=== PATIENT | male | born 1975 ===

== ENCOUNTER 2017-08-11 10:40 | Emergency (ER) | payer OTHER, MEDICAID ==
[2017-08-11 10:56] VITALS: RESP 18; TEMP 98.1
--- NOTE | 2017-08-11 13:10 | RAD ---
Right tibia and fibula four views History: Fall. Comparison: None available. Findings: No evidence of acute displaced fracture or dislocation. Prominent traversing vessel through the medial cortex of the mid fibula. Impression: Negative acute. If pain persists, consider MRI.
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
[2017-08-11 13:40] VITALS: PULSE 65
[2017-08-11 13:47] VITALS: O2SAT 99
[2017-08-11 13:59] VITALS: BP 179/100
--- NOTE | 2017-08-11 14:09 | RAD ---
Pelvis and right hip two views History: Fall. Comparison: None available. Findings: Right hip: No evidence for acute displaced fracture or dislocation. Nonvisualization of the right lesser trochanter in relationship to the left proximal femur with cortical productive change along the medial cortex of the left proximal femur. This is of uncertain clinical etiology. Correlation with MRI may be helpful if clinically indicated. Clinical correlation. Remainder of the visualized bony pelvis appears grossly preserved. Impression: Nonvisualization of the right lesser trochanter in relationship to the left proximal femur with cortical productive change along the medial cortex of the left proximal femur. This is of uncertain clinical etiology. Correlation with MRI may be helpful if clinically indicated. Clinical correlation. If pain persists, consider MRI.
== END 2017-08-11 14:00 | disposition home or self-care (01) ==
LOC: C.ER 10:40
DX: T14.8XXA Other injury of unspecified body region, initial encounter (principal); S80.211A Abrasion, right knee, initial encounter; Y04.0XXA Assault by unarmed brawl or fight, initial encounter; Y92.89 Other specified places as the place of occurrence of the external cause; Y99.0 Civilian activity done for income or pay; I10 Essential (primary) hypertension